=== PATIENT | male | born 1985 | race Caucasian/White ===

== ENCOUNTER 2016-04-15 12:20 | Emergency (ER) | payer MEDICAID ==
[2016-04-15] MEDS ORDERED: DUONEB INH ONE ×2 (15:02→17:58)
[2016-04-15] MEDS ORDERED: ONDANSETRON 4 MG VIAL ONE ×2 (16:06→18:42)
[2016-04-15] MEDS ORDERED: SODIUM CHLORIDE 0.9% 1,000 ML ONE ×2 (16:07→17:45)
[2016-04-15] MEDS ORDERED: METHYLPRED SOD SUCC 125 MG/2 ML VIAL ONE ×2 (16:07→16:11)
[2016-04-15] MEDS ORDERED: KETOROLAC 30 MG/ML VIAL ONE (17:18)
[2016-04-15] MEDS ORDERED: ACETAMINOPHEN 325 MG TAB ONE (17:45)
[2016-04-15] MEDS ORDERED: MORPHINE 4 MG/ML SYR ONE (18:42)
== END 2016-04-15 19:37 | disposition home or self-care (01) ==
LOC: ER 12:20
CPT/HCPCS: 71020; 94640; 96361; 96374; 96375; 96376